=== PATIENT | male | born 1990 | race Hispanic/Latino ===

== ENCOUNTER 2023-11-10 20:12 | Emergency (ER) | payer OTHER, SELFPAY ==
[2023-11-10 20:22] VITALS: BP 111/77
--- NOTE | 2023-11-10 20:40 | ED.GENMED ---
History of Present Illness
General
Chief Complaint: Skin Problem
Source: patient
Exam Limitations: none
Time Seen by Provider: 11/10/23 20:34
Travel History
Have you had any contact with someone who has COVID-19?: No
Do you have any symptoms of coronavirus? Fever > 100 degrees, chills, cough, shortness of breath, sore throat, loss of taste or smell, muscle aches, or headache?: No
History of Present Illness
History of Present Illness:
32-year-old male presents with itchy rash starting 3 days ago. Its on his arms and chest. He tried 1 dose of an antihistamine from the pharmacy without relief. No fever. No chest pain. No sore throat. No new detergents or medications.
Past History
Past History
ED Past Medical History: None
ED Past Surgical History: None
Patient has exhibited threatening behavior?: No
PSI?: No
Phy Exam
Physical Exam
Physical Exam:
General: Well-appearing male no acute respiratory distress
HEENT: Normocephalic atraumatic neck is supple
Skin: Slightly raised erythematous urticarial type rash over the chest and arms. No underlying fluctuance or induration. Nontender is pruritic in nature
Extremities: No cyanosis
Course
Orders/Labs/Results
Orders:
Orders
11/10/23 20:39
Prednisone [Deltasone] 50 mg PO NOW STA
Vital Signs
Initial and Last Documented VS:
Initial Vital Signs
Temp Pulse Resp BP Pulse Ox
98.3 F 99 18 111/77 96
11/10/23 20:22 11/10/23 20:22 11/10/23 20:22 11/10/23 20:22 11/10/23 20:22
Last Documented Vital Signs
Temp Pulse Resp BP Pulse Ox
98.3 F 99 18 111/77 96
11/10/23 20:22 11/10/23 20:22 11/10/23 20:22 11/10/23 20:22 11/10/23 20:22
MDM/Problems Addressed
Differential Diagnosis Includes:
Rash. Differential could include allergy mediated versus viral. Does not look infectious such as cellulitis. Will continue to treat with antihistamines and add prednisone. No fever. No meningeal signs. No concerning findings otherwise
*Critical Care Note
Total Time (30-74mins, 75-104mins- exclusive of procedures): Not Applicable
ED Attending Note
-
Portions of this chart may have been created with voice recognition software.� Occasional wrong word or��sound alike� substitutions may have occurred due to the inherent limitations of voice recognition software.
Discharge Plan
Departure
Patient Disposition: Home (Routine Discharge)
Date of Disposition: 11/10/23
Time of Disposition: 20:42
Patient with high blood pressure during this ER visit?: No
Discharge Problem:
Rash
Instructions: Skin Rash (DC)
Prescriptions:
New
prednisone 20 mg tablet
40 mg PO DAILY 5 Days Qty: 10 0RF
No Action
methylprednisolone [Medrol (Akash)] 4 mg tablets,dose pack
4 mg PO DAILY Qty: 21 0RF
Activity Restrictions/Additional Instructions:
Use Benadryl 25 mg every 4 hours if needed. Use prednisone as directed. Return for worsening symptoms otherwise follow-up with family
Interventions
Interventions:
*Risk Screen - Suicide Last Done: 11/10/23 20:22
*General Assessment Last Done: 11/10/23 20:22
*Neglect/Abuse Screening Last Done: 11/10/23 20:22
[2023-11-10] MEDS: DELTASONE 50 MG PO (20:52)
== END 2023-11-10 21:11 | disposition home or self-care (01) ==
LOC: EMR 20:12
PROVIDERS: EMERGENCY PHYSICIAN Emergency Medicine
DX: R21 Rash and other nonspecific skin eruption (principal)
CPT/HCPCS: 99283

== ENCOUNTER 2024-03-15 16:37 | Emergency (ER) | payer SELFPAY ==
[2024-03-15 16:38] VITALS: BP 116/78
[2024-03-15] MEDS: NORCO 5/325 1 TABLET PO (17:38)
--- NOTE | 2024-03-15 23:30 | ED.MUSCINJ ---
HPI-Injury
General
Chief Complaint: Musculo-Skeletal Complaint
Source: patient
Exam Limitations: none
Time Seen by Provider: 03/15/24 17:20
Nursing documentation reviewed up to this point in time: agreed with
History of Present Illness-Injury
Is this injury a work related problem?: No
Is pt an associate of [facility]/[place]?: No
Initial Injury comments:
Accidenally kicked goal post today while playing soccer. COmplains of pain to right foot. Injury occurred just [employer]
Past History
Past History
ED Past Medical History: None
ED Past Surgical History: None
Patient has exhibited threatening behavior?: No
PSI?: No
Review of Systems
Review of Systems
Allergies reviewed?: Yes
All Other Systems: ROS reviewed and negative except as documented in HPI and ROS
Constitutional: Reports no symptoms
Musculoskeletal: Reports other (achilles intact. No tenderness proximnal tib/fib)
Skin: Reports no symptoms
Neurological: Reports no symptoms
Psychiatric: Reports no symptoms
Musculoskeletal Injury Exam
Musculoskeletal Injury Exam
Right Foot:
Pain with Movement?: Moderate
Tender to palpation?: Moderate
Soft tissue swelling?: Moderate
External deformity and angulation?: None
Joint effusion?: None
Contusion?: Moderate
Hematoma-local bleeding into tissue?: None
Strain- Sprain- Tear (Connective tissue injury)?: Moderate
Crepitus with movement?: No
Joint instability?: No
Malalignment/deformity?: No
Range of motion: Limited
Distal skin color and temperature: normal-warm & good color
Capillary Refill: normal
Normal distal neurovascular exam?: Yes
Peripheral Pulses: posterior tibial (right): 3+ and dorsalis pedis (right): 3+
Injury Course
Orders/Labs/Results
Orders:
Orders
03/15/24 16:40
Foot, Right 3 View [CR Foot - Right Min 3 Views] Urgent
Comment:
Reason For Exam: pain and swelling
03/15/24 17:25
Crutches-Treatment ONCE
Short Leg Right-Treatment ONCE
Hydrocodone 5/APAP 325 [[place] 5/325] 1 tablet PO NOW STA
ED Attending Note
-
Portions of this chart may have been created with voice recognition software.� Occasional wrong word or��sound alike� substitutions may have occurred due to the inherent limitations of voice recognition software.
Discharge Plan
Departure
Patient Disposition: Home (Routine Discharge)
Date of Disposition: 03/15/24
Time of Disposition: 17:26
Patient with high blood pressure during this ER visit?: No
Condition: Good
Covid-19: Not Applicable
Discharge Problem:
Foot fracture
Instructions: How to Use Crutches, Ibuprofen, Splint Care, Foot Fracture
Prescriptions:
New
hydrocodone-acetaminophen 5-325 mg tablet
1 tab PO Q4H PRN (Reason: Pain) Qty: 10 0RF
No Action
methylprednisolone [Medrol (Akash)] 4 mg tablets,dose pack
4 mg PO DAILY Qty: 21 0RF
prednisone 20 mg tablet
40 mg PO DAILY 5 Days Qty: 10 0RF
Referrals:
Efren Mcdaniels MD [Active] - Tomorrow
Activity Restrictions/Additional Instructions:
Call orthopedics tomorrow to schedule your appointment.
Interventions
Interventions:
*Risk Screen - Suicide Last Done: 03/15/24 16:38
*General Assessment Last Done: 03/15/24 16:38
*Neglect/Abuse Screening Last Done: 03/15/24 16:38
*ED COVID-19 Vaccine History Last Done: 03/15/24 16:38
*Nursing Disposition Last Done: 03/15/24 18:14
ED-Musculoskeletal Assessment Last Done: 03/15/24 17:39
Discharge Date and Time
Discharge Date/Time: 03/15/24 18:14
Print Language: OCCITAN
== END 2024-03-15 18:14 | disposition home or self-care (01) ==
LOC: EMR 16:37
PROVIDERS: EMERGENCY PHYSICIAN Emergency Medicine; FAMILY PHYSICIAN Internal Medicine Cardiovascular Disease
DX: S92.901A Unspecified fracture of right foot, initial encounter for closed fracture (principal); S90.31XA Contusion of right foot, initial encounter; W21.89XA Striking against or struck by other sports equipment, initial encounter; Y93.66 Activity, soccer
CPT/HCPCS: 99283; 29515; 73630

== ENCOUNTER → 2024-03-21 07:20 | Outpatient (REF) | payer OTHER, SELFPAY | LOC: RAD 07:20 | PROVIDERS: ATTENDING PHYSICIAN Student in an Organized Health Care Education/Training Program | DX: S92.321A Displaced fracture of second metatarsal bone, right foot, initial encounter for closed fracture (principal); S92.331A Displaced fracture of third metatarsal bone, right foot, initial encounter for closed fracture; S92.341A Displaced fracture of fourth metatarsal bone, right foot, initial encounter for closed fracture | CPT/HCPCS: 73700 ==

== ENCOUNTER 2024-03-22 06:27 | Day surgery (SDC) | payer OTHER, SELFPAY ==
[2024-03-22] VITALS (8 sets, daily range): BP systolic 113–126; BP diastolic 56–76; BMI 21.9
[2024-03-22] MEDS: TYLENOL 1000 MG PO (13:31)
[2024-03-22] MEDS: CELEBREX 200 MG PO (13:31)
[2024-03-22] MEDS: NORMOSOL-R 1000 IV (13:33)
== END 2024-03-22 19:24 | disposition home or self-care (01) ==
LOC: SDS 06:27
PROVIDERS: ATTENDING PHYSICIAN Student in an Organized Health Care Education/Training Program
DX: S92.311A Displaced fracture of first metatarsal bone, right foot, initial encounter for closed fracture (principal); S92.321A Displaced fracture of second metatarsal bone, right foot, initial encounter for closed fracture; S92.331A Displaced fracture of third metatarsal bone, right foot, initial encounter for closed fracture; S92.341A Displaced fracture of fourth metatarsal bone, right foot, initial encounter for closed fracture; S92.231A Displaced fracture of intermediate cuneiform of right foot, initial encounter for closed fracture; S93.324A Dislocation of tarsometatarsal joint of right foot, initial encounter; X58.XXXA Exposure to other specified factors, initial encounter
CPT/HCPCS: 28730; 28485 ×3; 73630; 76000

== ENCOUNTER 2024-03-23 23:34 | Emergency (ER) | payer SELFPAY ==
[2024-03-24 01:32] VITALS: BP 128/63
--- NOTE | 2024-03-24 01:35 | ED.GENMED ---
History of Present Illness
General
Chief Complaint: Post Operative Problem(s)
Source: patient
Exam Limitations: none
Time Seen by Provider: 03/24/24 01:26
History of Present Illness
History of Present Illness:
This is a 33 year old male that comes in with c/o pain in the right foot. States that he has surgery yesterday on his foot. States that today he got up at 9am and he started with pain. States that the pain has gotten worse throughout the da today.
Patient was given Hydrocodone with Tylenol for pain but this is not helping. Denies any fever, chills, chest pain, SOB, abd pain, nausea, vomiting, diarrhea, headache, dizziness, urinary burning.
Past History
Past History
ED Past Medical History: None; Negative Asthma, HTN, Hypercholesterolemia or NIDDM
ED Past Surgical History: Orthopedic (Right foot ORIF)
Patient has exhibited threatening behavior?: No
PSI?: No
Social History
Tobacco: Non-smoker
Alcohol: Occasional
Personal: Single
Living: with family
Review of Systems
Review of Systems
All Other Systems: ROS reviewed and negative except as documented in HPI and ROS
Constitutional: Reports no symptoms; Denies fever or chills
EENT: Reports no symptoms
Respiratory: Reports no symptoms; Denies cough or trouble breathing
Cardiac: Reports no symptoms; Denies chest pain
ABD/GI: Reports no symptoms; Denies abdominal pain, nausea, vomiting or diarrhea
: Reports no symptoms; Denies dysuria, frequency or urgency
Musculoskeletal: Reports other (Right foot pain)
Skin: Reports no symptoms
Neurological: Reports no symptoms; Denies dizzy or headache
Psychiatric: Reports no symptoms
Phy Exam
General Physical Exam
General Presentation: mild distress
General age: appears stated age
General Skin: warm and dry
General Habitus: normal
General Mental: alert
General Hydration: appears well hydrated
ENT Exam
ENT Exam: TM's normal, pharynx normal and neck supple
Eye Exam
Eye Exam: EOMI
Cardiovascular Exam
Cardiovascular Exam: regular rate/rhythm, no edema, no murmur and normal peripheral pulses
Pulmonary Exam
Pulmonary Exam: lungs clear, no respiratory distress, no rales, chest non tender, no crackles, no rhonchi, no wheezing and no cough
Musculoskeletal Exam
Musculoskeletal Exam: other (Surgical splint maintained. Toes warm to tough with good capillary refill. )
Skin Exam
Skin Exam: normal color, warm/dry, no rash and no petechia
Psychiatric Exam
Psychiatric Exam: normal mood/affect
Course
Orders/Labs/Results
Orders:
Orders
03/24/24 01:40
HYDROmorphone [Dilaudid] 1 mg IV NOW STA
Ondansetron Injectable [Zofran] 4 mg IV NOW STA
03/24/24 01:46
Ketorolac [Toradol] 30 mg IV NOW STA
Vital Signs
Initial and Last Documented VS:
Initial Vital Signs
Temp Pulse Resp Pulse Ox
98.8 F 69 14 99
03/23/24 23:41 03/23/24 23:41 03/23/24 23:41 03/23/24 23:41
Last Documented Vital Signs
Temp Pulse Resp BP Pulse Ox
98.8 F 65 14 128/63 99
03/23/24 23:41 03/24/24 01:32 03/23/24 23:41 03/24/24 01:32 03/24/24 01:32
MDM/Problems Addressed
Differential Diagnosis Includes:
Uncontrolled surgical pain
MDM/Problems Addressed:
This is a 33 year old male that comes in with c/o right foot pain. States that he had surgery yesterday on his foot and starting at 9am today after he got OOB he started with pain. States that his pain has gotten worse tonight.
Explained to patient that the fact that he just had surgery yesterday, it has not been long enough for an infection to start. Patient has good capillary refill on the toes and they are warm to touch. Dash have patient use Ice to the foot and will
give pain medication here. Will change patients medication and have him call the surgeon tomorrow to notify him of his pain so he can be seen on Tuesday. Patient to return with any other concerns,
Chronic conditions affecting care:
NA
Acute Exacerbation and/or Progression of Chronic Illness: Other (Surgery right foot)
*Pulse Oximetry
Patient hypoxic: no
*EKG
Interpreted by ED Provider?: NA
Rate: EKG- N/A
*Production Sound Mixer Interpretation
Rate: Production Sound Mixer- N/A
*Critical Care Note
Total Time (30-74mins, 75-104mins- exclusive of procedures): Not Applicable
ED Attending Note
-
Portions of this chart may have been created with voice recognition software.� Occasional wrong word or��sound alike� substitutions may have occurred due to the inherent limitations of voice recognition software.
Discharge Plan
Departure
Patient Disposition: Home (Routine Discharge)
Date of Disposition: 03/24/24
Time of Disposition: 02:29
Patient with high blood pressure during this ER visit?: No
Condition: Good
Covid-19: Not Applicable
Discharge Problem:
Post-operative pain
Instructions: Postoperative Pain (DC)
Prescriptions:
New
oxycodone 5 mg tablet
5 mg PO Q6H PRN (Reason: Pain) Qty: 20 0RF
No Action
hydrocodone-acetaminophen 5-325 mg tablet
1 tab PO Q4H PRN (Reason: Pain) Qty: 10 0RF
Referrals:
Rony Diaz MD [Family Provider] -
Activity Restrictions/Additional Instructions:
As discussed, a prescription has been sent to your pharmacy. Please stop the Hydrocodone with acetaminophen. You may now take Tylenol 1000mg every 6 hours for pain with the Oxycodone that has been sent to your Pharmacy. Please use ice to the foot to
help decrease the pain. Elevate your foot/leg on a pillow. PLEASE CALL THE SURGEON TOMORROW AND LET THEM KNOW THAT YOU WERE HERE AND WILL NEED FURTHER EVALUATION ON TUESDAY. IF YOU HAVE ANY OTHER CONCERNS PLEASE RETURN TO THE EMERGENCY ROOM.
Interventions
Interventions:
*Risk Screen - Suicide Last Done: 03/24/24 01:21
*General Assessment Last Done: 03/24/24 01:33
*Neglect/Abuse Screening Last Done: 03/24/24 01:21
*ED COVID-19 Vaccine History Last Done: 03/24/24 01:21
ED-Skin Assessment Last Done: 03/24/24 01:21
Discharge Date and Time
Print Language: DANISH
[2024-03-24] MEDS: DILAUDID 1 MG IV (01:50)
[2024-03-24] MEDS: ZOFRAN 4 MG IV (01:51)
[2024-03-24] MEDS: TORADOL 30 MG IV (01:58)
[2024-03-24 02:33] VITALS: BP 130/54
== END 2024-03-24 02:35 | disposition home or self-care (01) ==
LOC: EMR 23:34
PROVIDERS: EMERGENCY PHYSICIAN Emergency Medicine; FAMILY PHYSICIAN Internal Medicine Cardiovascular Disease
DX: G89.18 Other acute postprocedural pain (principal); M79.671 Pain in right foot
CPT/HCPCS: 99284; 96374; 96375 ×2

== ENCOUNTER 2024-04-17 20:28 | Emergency (ER) | payer SELFPAY ==
[2024-04-17 20:31] VITALS: BP 107/68
--- NOTE | 2024-04-17 21:30 | ED.GENMED ---
History of Present Illness
<Hong Shipman DO, Resident - Last Filed: 04/18/24 16:06>
General
Chief Complaint: Post Operative Problem(s)
Source: patient and family
Time Seen by Provider: 04/17/24 21:19
History of Present Illness
History of Present Illness:
Patient is a 33-year-old male presenting to the ED with discharge from surgical incisions on his right foot. He states that he got surgery done to repair 3 broken toes 2 weeks ago and that he recently took a shower and accidentally got his incision
wet. Since then he has been having some discharge and foul or odor from the foot. He has not taken any pain medications or antibiotics for the symptoms. He does not have any fevers but does state that he has been difficulty sleeping sometimes and
will periodically have chills.
Past History
<Hong Shipman DO, Resident - Last Filed: 04/18/24 16:06>
Past History
ED Past Medical History: None; Negative Asthma, HTN, Hypercholesterolemia or NIDDM
ED Past Surgical History: Orthopedic (Right foot ORIF)
Patient has exhibited threatening behavior?: No
PSI?: No
Social History
Tobacco: Non-smoker
Alcohol: Occasional
Personal: Single
Living: with family
Review of Systems
<Hong Shipman DO, Resident - Last Filed: 04/18/24 16:06>
Review of Systems
Constitutional: Reports sleep disturbance and chills
EENT: Reports no symptoms
Respiratory: Reports no symptoms
Cardiac: Reports no symptoms
ABD/GI: Reports no symptoms
: Reports no symptoms
Musculoskeletal: Reports other (right foot pain, right foot incision drainage)
Skin: Reports other (discharge (red and brown) )
Neurological: Reports no symptoms
Endocrine: Reports no symptoms
Psychiatric: Reports no symptoms
Phy Exam
<Hong Shipman DO, Resident - Last Filed: 04/18/24 16:06>
General Physical Exam
General Presentation: well appearing and no apparent distress
General age: appears stated age
General Skin: warm and dry
General Habitus: normal
General Mental: alert
General Hydration: appears well hydrated
Musculoskeletal Exam
Musculoskeletal Exam: full ROM and other (sensory function intact on distal right foot)
Skin Exam
Skin Exam: other (mild skin sloughing on top of right foot. No pus or active drainage )
Psychiatric Exam
Psychiatric Exam: normal mood/affect
Course
<Hong Shipman DO, Resident - Last Filed: 04/18/24 16:06>
Orders/Labs/Results
Orders:
Orders
04/17/24 21:54
Acetaminophen [Tylenol] 650 mg PO NOW STA
Vital Signs
Initial and Last Documented VS:
Initial Vital Signs
Temp Pulse Resp BP Pulse Ox
98.2 F 76 18 107/68 97
04/17/24 20:31 04/17/24 20:31 04/17/24 20:31 04/17/24 20:31 04/17/24 20:31
Last Documented Vital Signs
Temp Pulse Resp BP Pulse Ox
98.2 F 71 18 104/74 98
04/17/24 20:31 04/17/24 21:34 04/17/24 21:34 04/17/24 21:34 04/17/24 21:34
<Robert Han DO - Last Filed: 04/17/24 22:06>
Orders/Labs/Results
Orders:
Orders
04/17/24 21:54
Acetaminophen [Tylenol] 650 mg PO NOW STA
Vital Signs
Initial and Last Documented VS:
Initial Vital Signs
Temp Pulse Resp BP Pulse Ox
98.2 F 76 18 107/68 97
04/17/24 20:31 04/17/24 20:31 04/17/24 20:31 04/17/24 20:31 04/17/24 20:31
Last Documented Vital Signs
Temp Pulse Resp BP Pulse Ox
98.2 F 71 18 104/74 98
04/17/24 20:31 04/17/24 21:34 04/17/24 21:34 04/17/24 21:34 04/17/24 21:34
<Hong Shipman DO, Resident - Last Filed: 04/18/24 16:06>
MDM/Problems Addressed
Differential Diagnosis Includes:
wound sloughing
MDM/Problems Addressed:
Patient is a 33-year-old male presenting to the ED with discharge from surgical incision on right foot. Patient had surgery to repair fracture a few weeks ago. Patient is stable. No pus or active discharge seen. Patient was given Tylenol in ED.
Patient was discharged with 7-day course of Keflex to cover for infection. Patient was counseled on the importance of keeping the wound dry and following up with podiatry outpatient. Antibiotic cream was applied and patient's wound was redressed in
the ED.
Chronic conditions affecting care:
NA
Acute Exacerbation and/or Progression of Chronic Illness:
NA
<Hong Shipman DO, Resident - Last Filed: 04/18/24 16:06>
*Critical Care Note
Total Time (30-74mins, 75-104mins- exclusive of procedures): Not Applicable
ED Attending Note
<Hong Shipman DO, Resident - Last Filed: 04/18/24 16:06>
-
Portions of this chart may have been created with voice recognition software.� Occasional wrong word or��sound alike� substitutions may have occurred due to the inherent limitations of voice recognition software.
<Robert Han DO - Last Filed: 04/17/24 22:06>
ED Attending Note
Patient seen and examined by attending physician: Yes
I performed a history and physical exam of patient and discussed management with resident, I reviewed resident's note and agree with documented findings and plan of care.: Yes
ED Attending Note:
I agree with Noah's note
Pt with surgical incisions from ORIF right foot fracture. Foot has been in wet boot for some time. Wound seems overly moist and abnormal smell. No fever
Physical exam
Right foot: Surgical incisions noted on the more lateral aspect of the right foot and on the dorsal surface over the second metatarsal. Steri-Strips intact over the wounds. The wound on the dorsal surface of the foot has what appears to be some
serous drainage coming from the center of it. The Steri-Strips were removed in this area. The wound appears somewhat macerated but there is not significant erythema around the wound. I do not note any purulent discharge.
The wound appears more macerated from moisture than it does infection. However we will cover with Keflex given there is underlying hardware. Patient is strongly encouraged to call the office at Dr. Mauricio tomorrow morning and schedule an
appointment sooner than his regularly scheduled appointment on May 06.
Discharge Plan
Departure
Patient Disposition: Home (Routine Discharge)
Date of Disposition: 04/17/24
Time of Disposition: 21:54
Patient with high blood pressure during this ER visit?: No
Condition: Good
Discharge Problem:
Sloughing of wound
Instructions: Wound Care (DC)
Prescriptions:
New
cephalexin 500 mg capsule
500 mg PO BID Qty: 14 0RF
Referrals:
Juan Manuel Mauricio DPM [Active] - Tomorrow
Interventions
Interventions:
*Risk Screen - Suicide Last Done: 04/17/24 20:31
*General Assessment Last Done: 04/17/24 20:31
*Neglect/Abuse Screening Last Done: 04/17/24 20:31
ED- Fall Risk Assessment Last Done: 04/17/24 21:36
*ED COVID-19 Vaccine History Last Done: 04/17/24 21:35
*Nursing Disposition Last Done: 04/17/24 22:04
ED-Skin Assessment Last Done: 04/17/24 21:36
Discharge Date and Time
Discharge Date/Time: 04/17/24 22:08
Print Language: SLOVAK
[2024-04-17 21:33] VITALS: BMI 23.6
[2024-04-17 21:34] VITALS: BP 104/74
[2024-04-17] MEDS: TYLENOL 650 MG PO (22:02)
== END 2024-04-17 22:08 | disposition home or self-care (01) ==
LOC: EMR 20:28
PROVIDERS: EMERGENCY PHYSICIAN Emergency Medicine
DX: T81.89XA Other complications of procedures, not elsewhere classified, initial encounter (principal); X58.XXXA Exposure to other specified factors, initial encounter
CPT/HCPCS: 99282

== ENCOUNTER 2024-06-19 10:55 | Outpatient (RCR) | payer OTHER, SELFPAY | END 2024-06-19 23:59 | disposition home or self-care (01) | LOC: RPT 10:55 | PROVIDERS: ATTENDING PHYSICIAN Student in an Organized Health Care Education/Training Program | DX: Z47.89 Encounter for other orthopedic aftercare (principal); T84.84XD Pain due to internal orthopedic prosthetic devices, implants and grafts, subsequent encounter; M25.571 Pain in right ankle and joints of right foot; Z73.6 Limitation of activities due to disability; R26.89 Other abnormalities of gait and mobility | CPT/HCPCS: 97010; 97110; 97140; 97162 ==

== ENCOUNTER 2024-07-24 12:59 | Outpatient (RCR) | payer OTHER, SELFPAY | END 2024-07-24 23:59 | disposition home or self-care (01) | LOC: RPT 12:59 | PROVIDERS: ATTENDING PHYSICIAN Student in an Organized Health Care Education/Training Program | DX: Z47.89 Encounter for other orthopedic aftercare (principal); Z73.6 Limitation of activities due to disability; T84.84XD Pain due to internal orthopedic prosthetic devices, implants and grafts, subsequent encounter; R26.89 Other abnormalities of gait and mobility | CPT/HCPCS: 97010; 97110; 97112 ==

== ENCOUNTER 2024-07-27 13:17 | Outpatient (RCR) | payer OTHER, SELFPAY | END 2024-07-30 07:41 | disposition home or self-care (01) | LOC: RPT 13:17 | PROVIDERS: ATTENDING PHYSICIAN Student in an Organized Health Care Education/Training Program | DX: Z47.89 Encounter for other orthopedic aftercare (principal); T84.84XD Pain due to internal orthopedic prosthetic devices, implants and grafts, subsequent encounter; Z73.6 Limitation of activities due to disability; R26.89 Other abnormalities of gait and mobility; M79.671 Pain in right foot | CPT/HCPCS: 97110 ==